=== PATIENT | female | born 1995 | race Caucasian/White ===

== ENCOUNTER 2018-12-22 21:26 | Emergency (ER) | payer SELFPAY ==
[2018-12-22 22:27] LABS: Urine Blood NEGATIVE (NEG); Urine Glucose NEGATIVE (NEG); Urine Protein 1+ (NEG); Urine Specific Gravity 1.025 (1.005-1.030)
--- NOTE | 2018-12-22 23:34 | ER ---
Nurse's Notes [facility] Name: Jenni Patel Age: 23 yrs Sex: Female : 1995 Arrival Date: 12/22/2018 Time: 21:29 Bed 24 Private MD: Diagnosis: Encounter for general adult medical examination without abnormal findings Presentation: 12/22 21:45 Presenting complaint: Patient states: that for the past 2 days she has noticed a fc vaginal discharge that is yellow in color and has a bad odor. Thinks she has an STD. Transition of care: patient was not received from another setting of care. Onset of symptoms was December 20, 2018. Risk Assessment: Do you want to hurt yourself or someone else? Patient reports no desire to harm self or others. Initial Sepsis Screen: Does the patient meet any 2 criteria? HR > 90 bpm. Yes Does the patient have a suspected source of infection? No. Patient's initial sepsis screen is negative. Care prior to arrival: None. 21:45 Method Of Arrival: Ambulatory fc 21:45 Acuity: ANJU 4 fc Triage Assessment: 21:52 General: Appears in no apparent distress. Behavior is calm, cooperative. ls4 COSTUME MISTRESS: 21:47 LMP 11/21/2018 lp1 Historical: - Allergies: 21:52 Depakote; fc - Home Meds: 21:52 None [Active]; fc - PMHx: 21:52 Bipolar disorder; fc - PSHx: 21:52 None; fc - Immunization history:: Last tetanus immunization: up to date Flu vaccine status is unknown. - Social history:: Smoking status: Patient uses tobacco products, smokes two packs cigarettes per day. Patient/guardian denies using alcohol, street drugs. - Ebola Screening: : No symptoms or risks identified at this time. Screenin:48 Abuse screen: Denies threats or abuse. Denies injuries from another. Nutritional lp1 screening: No deficits noted. Tuberculosis screening: No symptoms or risk factors identified. Fall Risk None identified. Assessment: 21:55 General: Appears uncomfortable, Behavior is calm, cooperative. ls4 21:55 Pain: Complains of pain in suprapubic area Pain currently is 4 out of 10 on a pain ls4 scale. Neuro: No deficits noted. Cardiovascular: No deficits noted. Respiratory: No deficits noted. GI: No deficits noted. GI:. : No deficits noted. Derm: No deficits noted. Musculoskeletal: No deficits noted. 22:55 Reassessment: Patient appears in no apparent distress at this time. Patient and/or ls4 family updated on plan of care and expected duration. Pain level reassessed. Patient is alert, oriented x 3, equal unlabored respirations, skin warm/dry/pink. Vital Signs: 21:47 BP 117 / 85; Pulse 97; Resp 16; Temp 98.2(O); Pulse Ox 100% on R/A; Weight 63.96 kg; lp1 Height 5 ft. 2 in. (157.48 cm); Pain 0/10; 21:47 Body Mass Index 25.79 (63.96 kg, 157.48 cm) lp1 ED Course: 21:29 Patient arrived in ED. es 21:47 Arm band placed on left wrist. lp1 21:47 Patient has correct armband on for positive identification. Placed in gown. Side rails ls4 up X 1. 21:50 Cassy Buchanan RN is Primary Nurse. ls4 21:50 Triage completed. 22:01 Pradeep Ashley MD is Attending Physician. tw4 22:10 No provider procedures requiring assistance completed. ls4 22:20 Patient did not have IV access during this emergency room visit. ls4 23:58 Primary Nurse role handed off by Cassy Buchanan RN Administered Medications: No medications were administered Outcome: 23:30 Medical screen evaluation completed per provider. Patient declined treatment. ls4 23:30 Condition: stable 23:30 Following a medical screening exam, the patient was provided information regarding alternative care sites and resources available per registration personnel. 23:33 Patient left the ED. ls4 12/23 00:07 Discharge ordered by . tw4 00:09 Patient left the ED. ls4 Signatures: Emi Zamora Felicia, RN RN Luci Gonzalez RN RN [facility] Pradeep Ashley MD MD [facility] Cassy Buchanan RN RN ls4
--- NOTE | 2018-12-23 00:08 | EDPHYS ---
Physician Documentation [facility] Name: Jenni Patel Age: 23 yrs Sex: Female : 1995 Arrival Date: 12/22/2018 Time: 21:29 Bed 24 Private MD: ED Physician Pradeep Ashley HPI: 12/23 05:36 This 23 yrs old Female presents to ER via Ambulatory with complaints of STD tw4 Exposure. 05:36 The patient presents with vaginal discharge. Modifying factors: 2 week(s) ago, The tw4 symptoms are alleviated by nothing, the symptoms are aggravated by nothing. The patient is sexually active, does not use protection during intercourse. The patient has not experienced similar symptoms in the past. [employer]: 12/22 21:47 LMP 11/21/2018 lp1 Historical: - Allergies: 21:52 Depakote; fc - Home Meds: 21:52 None [Active]; fc - PMHx: 21:52 Bipolar disorder; fc - PSHx: 21:52 None; fc - Immunization history:: Last tetanus immunization: up to date Flu vaccine status is unknown. - Social history:: Smoking status: Patient uses tobacco products, smokes two packs cigarettes per day. Patient/guardian denies using alcohol, street drugs. - Ebola Screening: : No symptoms or risks identified at this time. ROS: 12/23 05:36 Positive for pelvic pain, vaginal discharge, Negative for urinary symptoms, urinary tw4 frequency, hematuria, flank pain, burning with urination, difficulty urinating, foul smelling urine. Constitutional: Negative for fever, chills, and weight loss, Eyes: Negative for injury, pain, redness, and discharge, Cardiovascular: Negative for chest pain, palpitations, and edema, Respiratory: Negative for shortness of breath, cough, wheezing, and pleuritic chest pain, Abdomen/GI: Negative for abdominal pain, nausea, vomiting, diarrhea, and constipation, Back: Negative for injury and pain, MS/Extremity: Negative for injury and deformity, Skin: Negative for injury, rash, and discoloration. Exam: 05:36 Constitutional: This is a well developed, well nourished patient who is awake, alert, tw4 and in no acute distress. Head/Face: Normocephalic, atraumatic. Cardiovascular: Regular rate and rhythm with a normal S1 and S2. No gallops, murmurs, or rubs. Normal PMI, no JVD. No pulse deficits. Respiratory: Lungs have equal breath sounds bilaterally, clear to auscultation and percussion. No rales, rhonchi or wheezes noted. No increased work of breathing, no retractions or nasal flaring. Abdomen/GI: Soft, non-tender, with normal bowel sounds. No distension or tympany. No guarding or rebound. No evidence of tenderness throughout. Back: No spinal tenderness. No costovertebral tenderness. Full range of motion. MS/ Extremity: Pulses equal, no cyanosis. Neurovascular intact. Full, normal range of motion. Neuro: Awake and alert, GCS 15, oriented to person, place, time, and situation. Cranial nerves II-XII grossly intact. Motor strength 5/5 in all extremities. Sensory grossly intact. Cerebellar exam normal. Normal gait. Vital Signs: 12/22 21:47 BP 117 / 85; Pulse 97; Resp 16; Temp 98.2(O); Pulse Ox 100% on R/A; Weight 63.96 kg; lp1 Height 5 ft. 2 in. (157.48 cm); Pain 0/10; 21:47 Body Mass Index 25.79 (63.96 kg, 157.48 cm) lp1 MDM: 22:02 Patient medically screened. tw4 12/23 00:04 Medical screen evaluation completed. EMTALA emergency medical condition absent. tw4 05:36 Differential diagnosis: dysmenorrhea, menorrhea, molar preganancy, uterine fibroids, tw4 urinary tract infection. Data reviewed: vital signs, nurses notes. Counseling: I had a detailed discussion with the patient and/or guardian regarding: the historical points, exam findings, and any diagnostic results supporting the discharge/admit diagnosis. 12/22 22: Order name: Urine Dipstick--Ancillary (enter results) ar5 12/22 22: Order name: Urine --Ancillary (enter results) ar5 Administered Medications: No medications were administered Disposition: 00:04 [facility]. tw4 Disposition: 12/23/18 00:07 Discharged to Home. Impression: Encounter for general adult medical examination without abnormal findings. - Condition is Stable. - Discharge Instructions: Medical Screening Exam. - Medication Reconciliation Form, Thank You Letter, Antibiotic Education, Prescription Opioid Use form. - Follow up: Private Physician; When: Upon discharge from the Emergency Department; Reason: If symptoms return, Recheck today's complaints, Continuance of care. - Problem is new. - Symptoms are unchanged. Signatures: Dispatcher [employer] EDMS Tish Whitaker, RN RN Luic Gonzalez RN RN lp1 Pradeep Ashley MD MD tw4 Cassy Buchanan RN RN ls4 Corrections: (The following items were deleted from the chart) 00:02 12/22 23:33 12/22/2018 23:33 Patient left the facility post triage evaluation and ls4 consult. Reason stated they are leaving due to other. ls4 12/23 00:09 00:07 12/23/2018 00:07 Discharged to Home. Impression: Encounter for general adult ls4 medical examination without abnormal findings. Condition is Stable. Forms are Medication Reconciliation Form, Thank You Letter, Antibiotic Education, Prescription Opioid Use. Follow up: Private Physician; When: Upon discharge from the Emergency Department; Reason: If symptoms return, Recheck today's complaints, Continuance of care. Problem is new. Symptoms are unchanged. tw4
== END 2018-12-23 00:09 | disposition home or self-care (01) ==
LOC: ER 21:26
DX: Z00.00 Encounter for general adult medical examination without abnormal findings (principal); F17.210 Nicotine dependence, cigarettes, uncomplicated
CPT/HCPCS: 81003; 81025; 99281